=== PATIENT | male | born 1980 | race Caucasian/White ===

== ENCOUNTER 2023-11-08 09:30 | Inpatient (IN) | payer MEDICAID ==
[~2023-11-08] VITALS: Ht 182.9 cm; Wt 81.6 kg
[2023-11-08 09:33] VITALS: O2SAT 98
[2023-11-08 10:01] LABS: HEMATOCRIT. 41.9 % (42.0-52.0); HEMOGLOBIN. 14.7 g/dL (14.0-18.0); MEAN CORPUSCULAR HEMOGLOBIN 32.6 pg (28.0-32.0); MEAN PLATELET VOLUME 6.2 fl (7.4-10.4); PLATELET 305 x1000/uL (130-400); RED BLOOD CELL COUNT 4.51 mill/uL (4.7-6.1); RED CELL DISTRIBUTION WIDTH 13.5 % (11.6-14.6); WHITE BLOOD COUNT 10.3 x1000/uL (4.5-11.0)
[2023-11-08] MEDS: SODIUM CHLORIDE 0.9% 1000ML BAG (SEPSIS BOLUS) IV ONE (10:11)
[2023-11-08 10:13] LABS: CHLORIDE 99 mEq/L (98-107); INR 1.1; POTASSIUM 3.4 mEq/L (3.5-5.1); PROTHROMBIN TIME 12.5 sec (9.6-11.0); SODIUM 132 mEq/L (136-145)
[2023-11-08 10:14] LABS: CALCIUM 8.4 mg/dL (8.7-10.4); CARBON DIOXIDE 24 mEq/L (21-32)
[2023-11-08 10:19] LABS: CREATININE 1.4 mg/dL (0.6-1.3); GLUCOSE 143 mg/dL (70-105)
[2023-11-08 10:20] LABS: UREA NITROGEN BLOOD 22 mg/dL (9-23)
[2023-11-08 10:21] LABS: ALANINE AMINOTRANSFERASE 14 IU/L (10-49); ALBUMIN 3.6 g/dL (3.2-4.8); ASPARTATE AMINOTRANSFERASE 22 IU/L (<34); BILIRUBIN DIRECT 0.7 mg/dL (<=3.0); ETHANOL BLOOD < 10 mg/dL (<10); LACTATE DEHYDROGENASE 156 IU/L (120-246)
[2023-11-08 10:22] LABS: BILIRUBIN TOTAL 2.8 mg/dL (0.1-1.0); LACTIC ACID 2.9 mmol/L (0.4-2.0); PROTEIN TOTAL 5.8 g/dL (6.0-8.3)
[2023-11-08 10:26] LABS: DIFFERENTIAL COMMENT 1
[2023-11-08 11:05] LABS: PLATELET ESTIMATE NORMAL
[2023-11-08] MEDS: SODIUM CHLORIDE 0.9% 1,000 ML IV ONE ×2 (13:29→15:00)
[2023-11-08] MEDS: CEFTRIAXONE 1GM/50ML 50 ML IV ONE (13:41)
[2023-11-08] MEDS: FAMOTIDINE 20MG TABLET PO ONE (13:41)
[2023-11-08] MEDS: METRONIDAZOLE 500 MG PREMIX 100 ML IV ONE (14:58)
[2023-11-08 15:46] LABS: CLARITY URINE CLEAR (CLEAR); COLOR URINE YELLOW (YELLOW); GLUCOSE URINE NEGATIVE (NEGATIVE); KETONES URINE NEGATIVE (NEGATIVE); LEUKOCYTE ESTERASE URINE NEGATIVE (NEGATIVE); NITRITE URINE NEGATIVE (NEGATIVE); OCCULT BLOOD URINE NEGATIVE (NEGATIVE); PROTEIN URINE NEGATIVE (NEGATIVE); SPECIFIC GRAVITY URINE 1.018 (1.005-1.030); UROBILINOGEN URINE 0.2 E.U./dL (0.2-1.0)
[2023-11-08 16:08] LABS: *AMPHETAMINES SCREEN URINE PRESUMPTIVE POSITIVE (NEGATIVE); *BARBITURATES SCREEN URINE NEGATIVE (NEGATIVE); *BENZODIAZEPINES SCREEN URINE NEGATIVE (NEGATIVE); *COCAINE SCREEN URINE NEGATIVE (NEGATIVE)
[2023-11-08 16:09] LABS: CANNABINOID URINE SCREEN NEGATIVE (NEGATIVE); ECSTASY MDMA SCREEN URINE NEGATIVE (NEGATIVE); METHADONE URINE SCREEN NEGATIVE (NEGATIVE); OPIATES URINE SCREEN NEGATIVE (NEGATIVE); PHENCYCLIDINE URINE SCREEN NEGATIVE (NEGATIVE)
[2023-11-08 17:44] VITALS: BP 119/70; PULSE 78; RESP 20; TEMP 97.5
[2023-11-08] MEDS ORDERED: ONDANSETRON HCL 4MG/2ML INJ IV PRN (17:45)
[2023-11-08 20:00] VITALS: BP 94/51; PULSE 99; RESP 20; TEMP 100.8
[2023-11-08] MEDS: LOPERAMIDE HCL 2MG CAPSULE PO PRN (21:27)
[2023-11-08] MEDS: ACETAMINOPHEN 325MG TABLET PO PRN (21:36)
[2023-11-08 22:24] LABS: CREATINE KINASE MB FRACTION 4.8 ng/mL (0.5-3.6)
[2023-11-09] VITALS: BP 79/42; PULSE 90; RESP 20; TEMP 97.9
[2023-11-09] MEDS: DEXT 5%/0.45% NACL 1000ML 1,000 ML IV SCH (03:16)
[2023-11-09 04:00] VITALS: BP 95/56; PULSE 81; RESP 20; TEMP 97.9
[2023-11-09 05:20] VITALS: BP 95/56; PULSE 81; RESP 20; TEMP 97.9
[2023-11-09 08:00] VITALS: BP 100/60; PULSE 80; RESP 20; TEMP 97.5
[2023-11-09 12:00] VITALS: BP 94/59; PULSE 78; RESP 18; TEMP 98.1
[2023-11-09] MEDS ORDERED: METRONIDAZOLE 500 MG PREMIX 100 ML IV SCH (12:30)
[2023-11-09] MEDS: METRONIDAZOLE 500MG TABLET PO SCH (13:04)
[2023-11-09] MEDS: PANTOPRAZOLE SODIUM 40 MG/VIAL IV SCH (13:04)
[2023-11-09] MEDS: CEFTRIAXONE 1GM/50ML 50 ML IV SCH (13:04)
[2023-11-09] MEDS: POTASSIUM CHLORIDE 20MEQ TABLET SR PO NR (13:05)
[2023-11-09] MEDS: THIAMINE HCL 100MG TABLET PO SCH (13:07)
[2023-11-09] MEDS ORDERED: METR-167 MT (13:33)
[2023-11-09] MEDS ORDERED: LEVO-65 MT (13:33)
[2023-11-09 13:52] LABS: BILIRUBIN DIRECT 0.3 mg/dL (<=3.0)
[2023-11-09 14:09] LABS: HEPATITIS B SURFACE ANTIGEN NEGATIVE (Negative)
[2023-11-09 15:33] LABS: HEPATITIS A AB IGM NEGATIVE (Negative)
[2023-11-09 15:34] LABS: HEPATITIS B CORE AB IGM NEGATIVE (Negative); HEPATITIS C AB NON REACTIVE (Neg) (Negative)
[2023-11-09 16:00] VITALS: BP 96/64; PULSE 82; RESP 20; TEMP 98.5
[2023-11-10] VITALS: BP 104/73; PULSE 75; RESP 18; TEMP 98.1
[2023-11-10 04:00] VITALS: BP 106/64; PULSE 89; RESP 16; TEMP 98.1
[2023-11-10 06:49] LABS: BASOPHILS % 0.6 % (0.0-2.0); EOSINOPHILS % 2.1 % (0.0-5.0); HEMATOCRIT. 36.1 % (42.0-52.0); HEMOGLOBIN. 12.9 g/dL (14.0-18.0); LYMPHOCYTES % 20.6 % (20.0-50.0); MEAN CORPUSCULAR HEMOGLOBIN 32.7 pg (28.0-32.0); MEAN CORPUSCULAR HGB CONC 35.6 g/dL (31.0-37.0); MEAN CORPUSCULAR VOLUME 91.7 fL (80.0-94.0); MEAN PLATELET VOLUME 6.9 fl (7.4-10.4); MONOCYTES % 5.9 % (2.0-8.0); NEUTROPHILS % 70.8 % (40.0-76.0); PLATELET 261 x1000/uL (130-400); RED BLOOD CELL COUNT 3.93 mill/uL (4.7-6.1); RED CELL DISTRIBUTION WIDTH 13.9 % (11.6-14.6); WHITE BLOOD COUNT 7.1 x1000/uL (4.5-11.0)
[2023-11-10 06:52] LABS: CHLORIDE 109 mEq/L (98-107); POTASSIUM 3.3 mEq/L (3.5-5.1); SODIUM 141 mEq/L (136-145)
[2023-11-10 06:53] LABS: CALCIUM 8.8 mg/dL (8.7-10.4); CARBON DIOXIDE 23 mEq/L (21-32)
[2023-11-10 06:58] LABS: CREATININE 0.8 mg/dL (0.6-1.3); GLUCOSE 121 mg/dL (70-105); IRON 22 ug/dL (65-175); UREA NITROGEN BLOOD 8 mg/dL (9-23)
[2023-11-10 06:59] LABS: TOTAL IRON BINDING CAPACITY 483 ug/dl (250-425)
[2023-11-10 07:00] LABS: ALANINE AMINOTRANSFERASE 25 IU/L (10-49); ALBUMIN 3.6 g/dL (3.2-4.8); ASPARTATE AMINOTRANSFERASE 33 IU/L (<34); BILIRUBIN DIRECT 0.2 mg/dL (<=3.0); BILIRUBIN TOTAL 0.5 mg/dL (0.1-1.0); PROTEIN TOTAL 5.5 g/dL (6.0-8.3)
[2023-11-10 07:02] LABS: FERRITIN 153 ng/mL (22-322)
[2023-11-10 07:03] LABS: FOLIC ACID (FOLATE) SERUM 8.47 ng/mL (>5.38)
[2023-11-10 07:04] LABS: VITAMIN B12 SERUM 401 pg/mL (211-911)
[2023-11-10 08:00] VITALS: BP 95/61; PULSE 84; RESP 18; TEMP 97.8
[2023-11-10 12:00] VITALS: BP 110/73; PULSE 84; RESP 18; TEMP 97.7
[2023-11-10] MEDS: CYANOCOBALAMIN 1000MCG/ML VIAL IM SCH (14:16)
[2023-11-10] MEDS: POTASSIUM CHLORIDE 20MEQ TABLET SR PO NR (14:18)
[2023-11-10] MEDS ORDERED: FERROUS SULFATE 325MG TABLET PO SCH (17:40)
== END 2023-11-10 15:35 | disposition left against medical advice (07) | DRG 720 ==
LOC: ER 09:58 → 5WST 13:43 → 8WST 16:45
PROVIDERS: ADMIT Internal Medicine; ATTEND Internal Medicine
DX: A41.9 Sepsis, unspecified organism (principal); N17.0 Acute kidney failure with tubular necrosis; K52.9 Noninfective gastroenteritis and colitis, unspecified; F10.10 Alcohol abuse, uncomplicated; K40.90 Unilateral inguinal hernia, without obstruction or gangrene, not specified as recurrent; K29.70 Gastritis, unspecified, without bleeding; N40.0 Benign prostatic hyperplasia without lower urinary tract symptoms; Z59.00 Homelessness unspecified; K76.0 Fatty (change of) liver, not elsewhere classified; Z53.29 Procedure and treatment not carried out because of patient's decision for other reasons; R73.9 Hyperglycemia, unspecified
CPT/HCPCS: 36415; 71045; 74176; 76700; 80048; 80076; 80305; 80320; 81003; 82248; 82550; 82553; 82607; 82728; 82746; 83036; 83540; 83550; 83605; 83615; 84145; 85025; 86705; 86709; 87015; 87045; 87340; 87427; 87449; 87493; 89055; 93005; 99291; C9113; J0696; J3420; J3490; J7030; G0480

== ENCOUNTER 2024-10-22 10:46 | Emergency (ER) | payer MEDICAID ==
[~2024-10-22] VITALS: Ht 180.3 cm; Wt 81.6 kg
[~2024-10-22 10:46] MED LIST: LEVO-65 MT; METR-167 MT
[2024-10-22 10:47] VITALS: O2SAT 98
[2024-10-22 10:52] VITALS: BP 108/60; PULSE 72; RESP 16; TEMP 36.7; O2SAT 100
[2024-10-22] MEDS ORDERED: CEPH250T MT (11:13)
== END 2024-10-22 11:30 | disposition home or self-care (01) ==
LOC: ER 10:46
DX: L02.91 Cutaneous abscess, unspecified (principal); Z76.0 Encounter for issue of repeat prescription
CPT/HCPCS: 99281